=== PATIENT | male | born 1985 | race Caucasian/White ===

== ENCOUNTER 2024-04-03 10:00 | Outpatient (RCR) | payer BC ==
[~2024-04-03 10:00] MED LIST: ADDERALL XR 3030 MG PO; CIPRO500 MG PO; COLACE100 MG PO; FLAGYL250 MG; TYLENOL WITH C1 EAC1 PO; TYLENOL WITH C1 EACH PO; ZOFRAN ODT4 MG
== END 2024-04-11 ==
LOC: PT 10:00
PROVIDERS: ATTEND Specialist
DX: M47.812 Spondylosis without myelopathy or radiculopathy, cervical region (principal); M62.81 Muscle weakness (generalized); M25.512 Pain in left shoulder

== ENCOUNTER 2024-05-01 11:00 | Outpatient (RCR) | payer BC | END 2024-05-12 | LOC: PT 11:00 | PROVIDERS: ATTEND Specialist | DX: M47.812 Spondylosis without myelopathy or radiculopathy, cervical region (principal); M62.81 Muscle weakness (generalized); M53.82 Other specified dorsopathies, cervical region; M25.512 Pain in left shoulder ==

== ENCOUNTER 2024-05-15 10:33 | Outpatient (RCR) | payer BC | END 2024-06-12 | LOC: PT 10:33 | PROVIDERS: ATTEND Specialist | DX: M47.812 Spondylosis without myelopathy or radiculopathy, cervical region (principal); M25.512 Pain in left shoulder; M62.81 Muscle weakness (generalized) ==